=== PATIENT | female | born 1995 | race Asian ===

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

== ENCOUNTER 2017-04-21 14:48 | Emergency (ER) | payer OTHER ==
[~2017-04-21] VITALS: Ht 165.1 cm; Wt 83.9 kg
[2017-04-21 14:55] VITALS: BP 130/80; TEMP 98
== END 2017-04-21 15:25 | disposition home or self-care (01) ==
LOC: ED 14:48
DX: H10.9 Unspecified conjunctivitis (principal)
CPT/HCPCS: 99282

== ENCOUNTER 2018-02-18 08:10 | Emergency (ER) | payer BC ==
[~2018-02-18] VITALS: Ht 165.1 cm; Wt 82.6 kg
[2018-02-18 08:18] VITALS: BP 120/71; TEMP 97.9
== END 2018-02-18 09:31 | disposition home or self-care (01) ==
LOC: ED 08:10
DX: M79.601 Pain in right arm (principal)
CPT/HCPCS: 99281

== ENCOUNTER 2018-06-06 22:40 | Emergency (ER) | payer BC ==
[~2018-06-06] VITALS: Ht 165.1 cm; Wt 86.2 kg
[2018-06-06 23:05] VITALS: TEMP 98.9
[2018-06-07 00:15] VITALS: BP 111/66
== END 2018-06-07 00:16 | disposition home or self-care (01) ==
LOC: ED 22:40
DX: S00.03XA Contusion of scalp, initial encounter (principal); W22.8XXA Striking against or struck by other objects, initial encounter
CPT/HCPCS: 99283

== ENCOUNTER 2019-02-16 17:35 | Outpatient (CLI) | payer BC, OTHER | END 2019-02-16 17:39 | disposition short-term general hospital (02) | LOC: AMB 17:35 | DX: M54.2 Cervicalgia (principal); M54.5 Low back pain; K13.79 Other lesions of oral mucosa; V89.2XXA Person injured in unspecified motor-vehicle accident, traffic, initial encounter; Y92.413 State road as the place of occurrence of the external cause | CPT/HCPCS: A0425; A0427 ==

== ENCOUNTER 2019-02-16 17:43 | Emergency (ER) | payer BC, OTHER ==
[~2019-02-16] VITALS: Ht 167.6 cm; Wt 79.8 kg
[2019-02-16 19:47] VITALS: BP 120/70; TEMP 98.5
== END 2019-02-16 19:50 | disposition home or self-care (01) ==
LOC: ED 17:43
DX: M54.9 Dorsalgia, unspecified (principal); M54.2 Cervicalgia; V43.53XA Car driver injured in collision with pick-up truck in traffic accident, initial encounter
CPT/HCPCS: 96372; 99283; J1885

== ENCOUNTER 2020-10-19 09:23 | Emergency (ER) | payer BC ==
[~2020-10-19] VITALS: Ht 167.6 cm; Wt 93.4 kg
[2020-10-19 09:32] VITALS: TEMP 98.5
[2020-10-19 10:58] VITALS: BP 132/69
== END 2020-10-19 11:00 | disposition home or self-care (01) ==
LOC: ED 09:23
DX: J20.9 Acute bronchitis, unspecified (principal); J02.9 Acute pharyngitis, unspecified
CPT/HCPCS: 87502; 87651; 99283

== ENCOUNTER 2021-04-29 12:51 | Emergency (ER) | payer OTHER ==
[~2021-04-29] VITALS: Ht 165.1 cm; Wt 96.2 kg
[2021-04-29 12:56] VITALS: BP 152/86; TEMP 97.6
== END 2021-04-29 16:47 | disposition home or self-care (01) ==
LOC: ED 12:51
DX: J02.9 Acute pharyngitis, unspecified (principal); E01.0 Iodine-deficiency related diffuse (endemic) goiter
CPT/HCPCS: 84436; 84443; 87651; 99283

== ENCOUNTER 2021-05-14 14:08 | Outpatient (CLI) | payer OTHER ==
[2021-05-14 14:33] LABS: PLATELET COUNT 280 K/uL (152-353)
[2021-05-14 14:49] LABS: POTASSIUM 3.7 mmol/L (3.6-5.2)
== END 2021-05-14 21:03 | disposition home or self-care (01) ==
LOC: US 14:08
PROVIDERS: ATTEND Nurse Practitioner Family
DX: E04.1 Nontoxic single thyroid nodule (principal); R53.83 Other fatigue; E55.9 Vitamin D deficiency, unspecified; E78.2 Mixed hyperlipidemia
CPT/HCPCS: 36415; 80053; 80061; 82306; 82607; 83520; 84439; 84443; 85027

== ENCOUNTER 2021-06-24 16:07 | Outpatient (CLI) | payer OTHER | END 2021-06-24 20:56 | disposition home or self-care (01) | LOC: RAD 16:07 | PROVIDERS: ATTEND Nurse Practitioner Family | DX: S69.92XA Unspecified injury of left wrist, hand and finger(s), initial encounter (principal) ==

== ENCOUNTER 2021-08-13 11:30 | Outpatient (CLI) | payer OTHER ==
[2021-08-13 12:50] LABS: SODIUM 138 mmol/L (136-145)
== END 2021-08-13 21:52 | disposition home or self-care (01) ==
LOC: LABW 11:30
PROVIDERS: ATTEND Nurse Practitioner Primary Care
DX: R07.9 Chest pain, unspecified (principal); M79.10 Myalgia, unspecified site
CPT/HCPCS: 36415; 80053; 82550; 82553; 84443; 84484; 85652

== ENCOUNTER 2021-10-28 12:42 | Emergency (ER) | payer OTHER ==
[~2021-10-28] VITALS: Ht 165.1 cm; Wt 93.9 kg
[2021-10-28 14:17] VITALS: BP 129/76; TEMP 99.5
== END 2021-10-28 14:17 | disposition home or self-care (01) ==
LOC: ED 12:42
DX: J06.9 Acute upper respiratory infection, unspecified (principal); R50.9 Fever, unspecified; U07.1 COVID-19
CPT/HCPCS: 87502; 87635; 87651; 99283; U0003

== ENCOUNTER 2022-04-25 10:08 | Emergency (ER) | payer OTHER ==
[~2022-04-25] VITALS: Ht 165.1 cm; Wt 94.3 kg
[2022-04-25 10:54] LABS: PLATELET COUNT 251 K/uL (152-353)
[2022-04-25 11:08] LABS: POTASSIUM 3.8 mmol/L (3.6-5.2)
[2022-04-25 13:39] VITALS: BP 130/69; TEMP 98
== END 2022-04-25 13:39 | disposition home or self-care (01) ==
LOC: ED 10:08
PROVIDERS: Family Medicine
DX: K52.89 Other specified noninfective gastroenteritis and colitis (principal); R10.13 Epigastric pain
CPT/HCPCS: 36415; 80053; 81002; 81025; 82150; 83690; 85027; 96374; 96375; 99284; J1885; J2405

== ENCOUNTER 2022-06-28 13:18 | Emergency (ER) | payer OTHER ==
[~2022-06-28] VITALS: Ht 165.1 cm; Wt 94.3 kg
[2022-06-28 13:25] VITALS: TEMP 99.2
[2022-06-28 14:02] LABS: PLATELET COUNT 277 K/uL (152-353)
[2022-06-28 14:17] LABS: POTASSIUM 3.9 mmol/L (3.6-5.2)
[2022-06-28] MEDS ORDERED: ONDA4TAB3 PO (16:27)
[2022-06-28 16:30] VITALS: BP 118/73
== END 2022-06-28 18:18 | disposition home or self-care (01) ==
LOC: ED 13:18
PROVIDERS: Emergency Medicine
DX: K52.89 Other specified noninfective gastroenteritis and colitis (principal); Z20.822 Contact with and (suspected) exposure to COVID-19
CPT/HCPCS: 80053; 81002; 81025; 85027; 87635; 96361; 96365; 99284; J2405; U0003

== ENCOUNTER 2022-07-05 21:05 | Emergency (ER) | payer OTHER ==
[~2022-07-05] VITALS: Ht 165.1 cm; Wt 94.3 kg
[~2022-07-05 21:05] MED LIST: ONDA4TAB3 PO
[2022-07-05 21:30] VITALS: BP 148/86; TEMP 98.9
[2022-07-05 22:22] LABS: PLATELET COUNT 281 K/uL (152-353)
== END 2022-07-05 23:20 | disposition home or self-care (01) ==
LOC: ED 21:05
PROVIDERS: Family Medicine
DX: B34.9 Viral infection, unspecified (principal); Z20.822 Contact with and (suspected) exposure to COVID-19
CPT/HCPCS: 36415; 81002; 85027; 87502; 87635; 99282; U0003

== ENCOUNTER 2022-09-07 13:32 | Emergency (ER) | payer OTHER ==
[~2022-09-07] VITALS: Ht 165.1 cm; Wt 94.3 kg
[2022-09-07 13:35] VITALS: BP 135/88; TEMP 98.7
[2022-09-07 14:35] LABS: PLATELET COUNT 291 K/uL (152-353)
[2022-09-07 14:38] LABS: POTASSIUM 4.5 mmol/L (3.6-5.2)
== END 2022-09-07 16:15 | disposition home or self-care (01) ==
LOC: ED 13:32
PROVIDERS: Emergency Medicine Emergency Medical Services
DX: K90.49 Malabsorption due to intolerance, not elsewhere classified (principal); R19.7 Diarrhea, unspecified; N83.292 Other ovarian cyst, left side
CPT/HCPCS: 36415; 80048; 81002; 81025; 85027; 87015; 87045; 87338; 87425; 87899; 96374; 99284; J2405; J3490; Q9963

== ENCOUNTER 2023-03-17 10:15 | Emergency (ER) | payer OTHER ==
[~2023-03-17] VITALS: Ht 165.1 cm; Wt 95.3 kg
[2023-03-17 10:18] VITALS: BP 176/100; TEMP 97.2
== END 2023-03-17 12:00 | disposition home or self-care (01) ==
LOC: ED 10:15
DX: B34.9 Viral infection, unspecified (principal)
CPT/HCPCS: 87502; 87651; 99283

== ENCOUNTER 2023-05-29 13:55 | Emergency (ER) | payer OTHER ==
[~2023-05-29] VITALS: Ht 165.1 cm; Wt 98.9 kg
[2023-05-29 14:05] VITALS: BP 129/81; TEMP 99.4
[2023-05-29 15:05] LABS: PLATELET COUNT 311 K/uL (152-353)
[2023-05-29 15:09] LABS: POTASSIUM 3.8 mmol/L (3.6-5.2)
== END 2023-05-29 17:16 | disposition home or self-care (01) ==
LOC: ED 13:55
PROVIDERS: Family Medicine
DX: R10.9 Unspecified abdominal pain (principal); R11.0 Nausea
CPT/HCPCS: 80053; 81002; 81025; 82150; 85027; 96361; 96374; 99284; J2405; Q9963

== ENCOUNTER 2023-06-15 10:44 | Emergency (ER) | payer OTHER ==
[~2023-06-15] VITALS: Ht 165.1 cm; Wt 98.9 kg
[2023-06-15 10:50] VITALS: BP 143/80; TEMP 98.6
== END 2023-06-15 11:28 | disposition home or self-care (01) ==
LOC: ED 10:44
DX: J32.9 Chronic sinusitis, unspecified (principal); B97.89 Other viral agents as the cause of diseases classified elsewhere
CPT/HCPCS: 99281